=== PATIENT | male | born 1960 | race Caucasian/White ===

== ENCOUNTER 2022-08-26 19:47 | Emergency (ER) | payer OTHER ==
[~2022-08-26] VITALS: Ht 182.9 cm; Wt 95.0 kg
[2022-08-26 20:29] LABS: Basophils # (auto) 0 10 ^3/uL (0-0.2); Basophils % (auto) 0.2 % (0.0-2.0); Eosinophils # (auto) 0.1 10 ^3/uL (0-0.8); Eosinophils % (auto) 0.4 % (0.0-7.0); Hematocrit 36.3 % (41.0-53.0); Hemoglobin 12.3 g/dL (13.5-17.5); Lymphocytes # (auto) 0.8 10 ^3/uL (0.4-5.4); Lymphocytes % (auto) 6.3 % (10.0-50.0); Mean Corpuscular Hemoglobin 32.7 pg (28.0-32.0); Monocytes # (auto) 1.3 10 ^3/uL (0-1.3); Monocytes % (auto) 10.2 % (0.0-12.0); Neutrophils # (auto) 10.7 10 ^3/uL (1.6-8.6); Neutrophils % (auto) 82.9 % (37.0-80.0); Red Blood Cells 3.78 10^6/uL (4.5-5.90); Red Cell Distribution Width 12.4 % (11.8-14.3); White Blood Cell 12.9 10^3/uL (4.4-10.8)
[2022-08-26 20:44] LABS: Calcium 10.6 mg/dL (8.5-10.1); Potassium 3.8 mmol/L (3.5-5.1)
[2022-08-26 20:50] LABS: BUN/Creatinine Ratio 17.3 (10.0-20.0); Bilirubin, Total 0.8 mg/dL (0.2-1.0); Total Protein 7.3 g/dL (6.4-8.2)
[2022-08-27] MEDS ORDERED: MORPHINE SULFATE 4 MG/ML SYR/VIAL IM ONE (03:30)
[2022-08-27 04:49] VITALS: BP 128/60
== END 2022-08-27 07:48 | disposition left against medical advice (07) ==
LOC: ER 19:47 → EDBD 19:47 → ER 08-27 07:48
DX: R07.89 Other chest pain (principal); E83.52 Hypercalcemia; R73.9 Hyperglycemia, unspecified; F41.9 Anxiety disorder, unspecified
CPT/HCPCS: 36415; 80053; 83690; 84484; 85025; 93005; 96372; 99284; J2270

== ENCOUNTER 2024-06-28 10:05 | Inpatient (IN) | payer MEDICAID, OTHER ==
[~2024-06-28] VITALS: Ht 193 cm; Wt 72.1 kg
[2024-06-28 10:15] VITALS: PULSE 83; RESP 16; O2SAT 98
--- NOTE | 2024-06-28 10:20 | ED.PDOC ---
History of Present Illness(SKN HPI Comments HPI: 64 year old male DUSTIN presents to the ED with chief complaint of right lower extremity wound. Patient reports that he had been previously admitted to [facility] for his right lower leg wound for 4 days, being discharged yesterday with Clindamycin, however, he has not picked it up yet. Patient relays that he called EMS today for assistance as his leg wound has worsened and he did not want to go back to [facility]. Patient states his wounds have been present for over a week, but they got worse last night with redness, drainage, and pain. EMS notes patient's EKG showed some PVCs, but nothing else abnormal. Patient denies any numbness, weakness, fever, or chills. Initial Vital Signs: Temp : 97.9F BP: 172/72 HR: 101 RR: 16 SpO2: 97% Past Medical History: HTN Past Surgical History: Frontal lobe tumor surgery, ankle surgery Social History: Denies smoking or ETOH. Heroin use. Medications: No medications. Allergies: Augmentin HPI: Poor Historian. REVIEW OF SYSTEMS: CONSTITUTIONAL: Denies acute: fever, diaphoresis, chills, generalized weakness. HEAD: Denies acute: headache, photophobia Eyes: Denies acute: Double vision, vision loss, eye pain, eye discharge. EARS: Denies acute: tinnitus, hearing loss, ear discharge, ear pain, THROAT: Denies acute: sore throat, swelling, difficulty swallowing , pain with swallowing, change in voice. NECK: Denies acute: neck pain, neck swelling, stiff neck. HEART: Denies acute : chest pain, palpitations, LUNGS: Denies acute: SOB, wheezing, cough, hemoptysis ABDOMEN: Denies acute: abdominal pain, Nausea, Vomiting, diarrhea, melena , hematemesis, hematochezia SKIN: Denies acute: rash, itchiness. EXTREMITIES: Denies acute: calf pain, numbness, tingling, weakness, Denies acute: Low back pain. Neuro: Denies acute: focal neurological deficit, motor or sensory focal neurological deficit, tremors, seizure like activity, confusion, dizziness, change in mental status, loss of bowel or bladder function, cauda equina like symptoms. : Denies acute: dysuria, hematuria, flank pain, increase in urinary frequency. PSYCH: Denies acute: hallucination, suicidal ideation, homicidal ideation. PHYSICAL EXAM: General: no acute distress, awake and alert. Head: normocephalic, atraumatic. Neck: supple, trachea is midline, no swelling. Throat: Normal phonation. Eyes:, no erythema, no purulent discharge, no proptosis, no icterus. Heart: regular rate, regular rhythm, no significant murmur appreciated. Lungs: no apparent respiratory distress, Able to speak in full sentences. No wheezing, no rhonchi, no crackles. No stridors Clear to auscultation bilaterally. Abdomen: non tender to palpation, non distended, soft, no guarding, no rebound, + bowel sounds. Neuro: Awake, Alert, oriented to name, self, situation, follows commands GCS=15. Speech is normal. Skin: no petechia, no purpura, no cyanosis, non-pale, not jaundice. Lower extremities: --no - Pitting edema no deformity, no calf TTP. Evaluation of the area of complaint: Right lower extremity mid anterior soto region is noted to have localized erythema and swelling and tenderness to palpation with a central ulceration and granulation tissues. Patient is neurovascularly intact in the affected extremity. Pedal pulses palpable. Sensation and motor are present. Makes eye contact. moves all four extremities. Face: no apparent facial droop. ED COURSE: Chief Complaint: Wound Check Time Seen by MD: 10:15 History of Present Illness: Nurses Notes, Medications, Allergies Allergies: Coded Allergies: NO KNOWN ALLERGIES (Unverified , 08/26/22) Home Meds No Active Prescriptions or Reported Meds Information Source: Patient, Emergency Med Personnel Mode of Arrival: EMS Was a procedure done? Was a procedure done?: No Differential Diagnosis (INTG) Differential Diagnosis: Other (Ddx include but not limited to cellulitis, abscess, lymphadenitis, lymphangitis, trauma, DVT, venous insufficiency, trauma, r/o septic joint., r/o associated osteomylitis, deep tissue infection, neoplasm, necrotizing fascitits, hematoma, ) X-Ray, Labs, Meds, VS Vital Signs Date Time Temp Pulse Resp B/P (MAP) Pulse Ox O2 Delivery O2 Flow Rate FiO2 06/28/24 10:47 107 06/28/24 10:15 83 16 98 Room Air* 0 21 06/28/24 10:15 97.8 83 16 131/52 (78) 98 97.8 06/28/24 10:12 97.9 101 16 172/72 (105) 97 97.9 Lab Test 06/28/24 10:26 Range/Units White Blood Count 8.3 4.4-10.8 10^3/uL Red Blood Count 3.91 L 4.5-5.90 10^6/uL Hemoglobin 12.0 L 13.5-17.5 g/dL Hematocrit 36.4 L 41.0-53.0 % Mean Corpuscular Volume 92.9 80.0-100.0 fL Mean Corpuscular Hemoglobin 30.7 28.0-32.0 pg Mean Corpuscular Hemoglobin Concent 33.0 32.0-36.0 g/dL Red Cell Distribution Width 13.9 11.8-14.3 % Platelet Count 249 140-450 10^3/uL Mean Platelet Volume 7.4 6.9-10.8 fL Neutrophils (%) (Auto) 76.5 37.0-80.0 % Lymphocytes (%) (Auto) 13.5 10.0-50.0 % Monocytes (%) (Auto) 7.8 0.0-12.0 % Eosinophils (%) (Auto) 1.9 0.0-7.0 % Basophils (%) (Auto) 0.3 0.0-2.0 % Neutrophils # (Auto) 6.3 1.6-8.6 10 ^3/uL Lymphocytes # (Auto) 1.1 0.4-5.4 10 ^3/uL Monocytes # (Auto) 0.6 0-1.3 10 ^3/uL Eosinophils # (Auto) 0.2 0-0.8 10 ^3/uL Basophils # (Auto) 0 0-0.2 10 ^3/uL Nucleated Red Blood Cells 0.1 % Erythrocyte Sedimentation Rate 33 H 0-20 mm/hr Sodium Level 140 136-145 mmol/L Potassium Level 4.9 3.5-5.1 mmol/L Chloride Level 111 H 98-107 mmol/L Carbon Dioxide Level 22 20-31 mmol/L Anion Gap 7 5-15 Blood Urea Nitrogen 63 H 9-23 mg/dL Creatinine 2.34 H 0.700-1.30 mg/dL Glomerular Filtration Rate Calc 31 >90 mL/min BUN/Creatinine Ratio 26.9 H 10.0-20.0 Serum Glucose 117 H 74-106 mg/dL Lactic Acid Level 1.0 0.4-2.0 mmol/L Calcium Level 10.7 H 8.7-10.4 mg/dL Total Bilirubin 0.3 0.2-1.0 mg/dL Aspartate Amino Transferase (AST) 76 H 13-40 U/L Alanine Aminotransferase (ALT) 86 H 7-40 U/L Alkaline Phosphatase 101 46-116 U/L Troponin I High Sensitivity 10 </=54 ng/L C-Reactive Protein High Sensitivity 0.18 <1.0 mg/dL B-Type Natriuretic Peptide 18.47 0-100 pg/mL Total Protein 7.1 5.7-8.2 g/dL Albumin 3.8 3.2-4.8 g/dL [place] [address] Ph: [phone] DIAGNOSTIC IMAGING Diagnostic Imaging Report : [id number] Signed PATIENT: ABIOLA BAUTISTA ACCT: [id number] UNIT: [id number] : 1960 LOC: OVERFLOW ROOM / BED: [address] [place] [address] AGE / SEX: 64 / M ADM STATUS: ADM IN SERVICE 1148 ORDERING PHYSICIAN: TYSON JULIAN DO PROCEDURE(s): RTBCT - CT R TIB FIB WO CONTRAST REASON: LEG WOUND/ULCER ORDER NUMBER(s): [id number], ACCESSION NUMBER(s): [id number] EXAMINATION: CT CT R TIB FIB WO CONTRAST INDICATION: LEG WOUND/ULCER COMPARISON: None TECHNIQUE: CT of the right lower extremity was performed without contrast. Volume transverse images were obtained reconstructed in multiple planes using bone and soft tissue algorithms. Radiation Dose Information: CT Dose: CTDI volume is 25.17 mGy. Dose-length product is 1398.34 mGy*cm FINDINGS/IMPRESSION: No acute fracture or dislocation. Degenerative changes at the knee joint and ankle joint. Severe diffuse subcutaneous soft-tissue edema, skin thickening and swelling suspicious for cellulitis. There is a 1.7 x 0.6 cm skin defect in the mid anterolateral calf. No abscess or fluid collection at this time. No definite CT findings of osteomyelitis. ATED BY: JEAN JIM MD DICTATED DATE/TIME: 06/28/24 1308 SIGNED BY: JEAN JIM MD SIGNED DATE/TIME: 06/28/24 1308 CC: Time of 1ST Reevaluation: 11:15 Reevaluation 1ST: Unchanged Patient Education/Counseling: Diagnosis, Treatment Family Education/Counseling: No Family Present Comments Patient presented with the above HPI.---leg pain and swelling/cellulitis---workup was initiated. patient was found with the above mentioned diagnosis. the following medications were ordered: please refer to order lists of meds and tests obtained by myself Dr. Julian. Patient ED course and VS have been stabilized. Patient has been reassessed in the ED and remained in a stable condition. Pertinent incidental findings were discussed with the patient and/or family. Patient/family voices understanding and is agreeable with plan. Patient has been observed in the ED adequate length of time to insure improvement/stability. Escalation of care considered: Consideration of escalation to observation or admission Patient was ADMITTED to the medicine team for further evaluation and treatment of their presentation. All the reports of any imaging studies that were ordered by myself were reviewed by myself. Departure 1 Departure Time of Disposition: 11:10 Impression: Primary Impression: Cellulitis of leg, right Disposition: ADMITTED INPATIENT Admit to: Tele Condition: Guarded e-Prescriptions No Active Prescriptions or Reported Meds Discharged With: Self Critical Care Note Critical Care Time?: Yes (35 min-critical care time only) I personally scribed for TYSON JULIAN DO ([email or web address]) on 06/28/24 at 10:20. Electronically submitted by Justyn Boggs ([email or web address]). TYSON JULIAN DO Jun 28, 2024 10:20
[2024-06-28] MEDS: VANCOMYCIN PER PHARMACY 0 MG IV STA (10:21)
[2024-06-28 10:35] LABS: Basophils # (auto) 0 10 ^3/uL (0-0.2); Basophils % (auto) 0.3 % (0.0-2.0); Eosinophils # (auto) 0.2 10 ^3/uL (0-0.8); Eosinophils % (auto) 1.9 % (0.0-7.0); Hematocrit 36.4 % (41.0-53.0); Lymphocytes # (auto) 1.1 10 ^3/uL (0.4-5.4); Lymphocytes % (auto) 13.5 % (10.0-50.0); Mean Corpuscular Hemoglobin 30.7 pg (28.0-32.0); Mean Corpuscular Volume 92.9 fL (80.0-100.0); Monocytes # (auto) 0.6 10 ^3/uL (0-1.3); Monocytes % (auto) 7.8 % (0.0-12.0); Neutrophils # (auto) 6.3 10 ^3/uL (1.6-8.6); Neutrophils % (auto) 76.5 % (37.0-80.0); Nucleated Red Blood Cells % 0.1 %; Platelet Count (auto) 249 10^3/uL (140-450); Red Blood Cells 3.91 10^6/uL (4.5-5.90); Red Cell Distribution Width 13.9 % (11.8-14.3); White Blood Cell 8.3 10^3/uL (4.4-10.8)
[2024-06-28 10:54] LABS: Albumin 3.8 g/dL (3.2-4.8); Alkaline Phosphatase 101 U/L (46-116); Anion Gap 7 (5-15); BUN/Creatinine Ratio 26.9 (10.0-20.0); CRP High Sensitivity 0.18 mg/dL (<1.0); Carbon Dioxide 22 mmol/L (20-31); Potassium 4.9 mmol/L (3.5-5.1); Sodium 140 mmol/L (136-145); Total Protein 7.1 g/dL (5.7-8.2)
[2024-06-28 10:56] LABS: Alanine Aminotransferase 86 U/L (7-40); Aspartate Aminotransferase 76 U/L (13-40); Bilirubin, Total 0.3 mg/dL (0.2-1.0); Blood Urea Nitrogen 63 mg/dL (9-23); Calcium 10.7 mg/dL (8.7-10.4); Chloride 111 mmol/L (98-107); Glucose 117 mg/dL (74-106)
[2024-06-28 11:08] LABS: Erythrocyte Sedimentation Rate 33 mm/hr (0-20)
[2024-06-28] MEDS ORDERED: ACETAMINOPHEN 325 MG TAB PO PRN (11:30)
[2024-06-28] MEDS ORDERED: MORPHINE SULFATE INJ 2 MG/ml SYRG IV PRN (11:30)
[2024-06-28] MEDS ORDERED: VANCOMYCIN PER PHARMACY 0 MG IV SCH (11:30)
[2024-06-28] MEDS ORDERED: ONDANSETRON HCL 4 MG/2 ML VIAL IV PRN (11:30)
[2024-06-28] MEDS: VANCOMYCIN 1GM/250ML KIT 250 ML IV ONE (11:45)
--- NOTE | 2024-06-28 11:57 | DVHHP2 ---
History of Present Illness Reason for Visit: Right lower extremity wound History of Present Illness Rajesh To is a 64-year-old male with past medical history of frontal lobe tumor surgery, left ankle surgery, hypertension, and chronic renal disease not on dialysis who presents to the ED with right lower extremity pain. 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 Patient states that the wound was not open like that when he was discharged. Upon examination noted to have pus draining foul-smelling odor. Right leg also erythematous. Patient states that he is homeless and he is living on the streets. He reports the right lower extremity pain 10/10 aching and burning constantly. Patient currently denies chest pain, shortness of breath, fever, chills, redness, weakness, dizziness, abdominal pain, nausea, vomiting, and diarrhea. Cardiovascular: HTN Renal/: Chronic renal insuff Past Surgical History: Other (Frontal lobe tumor surgery and left ankle surgery) Family History: None Smoke: <1 pack per day ALCOHOL: none Drugs: Heroin, Other (Fentanyl) Lives: Homeless Domestic Violence: Neg Review of Systems Musculoskeletal: leg pain Skin: Other (Erythematous open wound with pus draining and foul-smelling odor) Allergies: Coded Allergies: NO KNOWN ALLERGIES (Unverified , 08/26/22) Medications Current Medications Medications Dose Ordered Sig/Nisa Route Start Time Stop Time Status Last Admin Dose Admin Acetaminophen/ Hydrocodone Bitart 1 tab Q4HP PRN PO 06/28/24 11:30 UNV Ondansetron HCl 4 mg Q4HP PRN IV 06/28/24 11:30 UNV Enoxaparin Sodium 30 mg DAILY SC 06/29/24 10:00 UNV Acetaminophen 650 mg Q6HP PRN PO 06/28/24 11:30 UNV Morphine Sulfate 2 mg Q4HPRN PRN IV 06/28/24 11:30 UNV Vancomycin HCl 0 ml @ 0 mls/hr UD IV 06/28/24 11:30 UNV Exam Vital Signs Vital Signs Date Time Temp Pulse Resp B/P (MAP) Pulse Ox O2 Delivery O2 Flow Rate FiO2 06/28/24 10:47 107 06/28/24 10:15 16 98 Room Air* 0 21 06/28/24 10:15 97.8 131/52 (78) 97.8 General Appearance: Alert, Oriented X3, Cooperative, mild distress HEENT: Atraumatic, PERRLA, EOMI, Mucous membr. moist/pink Respiratory: Normal air movement Cardiovascular: Normal S1, Normal S2, No murmurs Abdominal: Soft Neuro: Normal speech Labs/Xrays Labs Test 06/28/24 10:26 Range/Units White Blood Count 8.3 4.4-10.8 10^3/uL Red Blood Count 3.91 L 4.5-5.90 10^6/uL Hemoglobin 12.0 L 13.5-17.5 g/dL Hematocrit 36.4 L 41.0-53.0 % Mean Corpuscular Volume 92.9 80.0-100.0 fL Mean Corpuscular Hemoglobin 30.7 28.0-32.0 pg Mean Corpuscular Hemoglobin Concent 33.0 32.0-36.0 g/dL Red Cell Distribution Width 13.9 11.8-14.3 % Platelet Count 249 140-450 10^3/uL Mean Platelet Volume 7.4 6.9-10.8 fL Neutrophils (%) (Auto) 76.5 37.0-80.0 % Lymphocytes (%) (Auto) 13.5 10.0-50.0 % Monocytes (%) (Auto) 7.8 0.0-12.0 % Eosinophils (%) (Auto) 1.9 0.0-7.0 % Basophils (%) (Auto) 0.3 0.0-2.0 % Neutrophils # (Auto) 6.3 1.6-8.6 10 ^3/uL Lymphocytes # (Auto) 1.1 0.4-5.4 10 ^3/uL Monocytes # (Auto) 0.6 0-1.3 10 ^3/uL Eosinophils # (Auto) 0.2 0-0.8 10 ^3/uL Basophils # (Auto) 0 0-0.2 10 ^3/uL Nucleated Red Blood Cells 0.1 % Erythrocyte Sedimentation Rate 33 H 0-20 mm/hr Sodium Level 140 136-145 mmol/L Potassium Level 4.9 3.5-5.1 mmol/L Chloride Level 111 H 98-107 mmol/L Carbon Dioxide Level 22 20-31 mmol/L Anion Gap 7 5-15 Blood Urea Nitrogen 63 H 9-23 mg/dL Creatinine 2.34 H 0.700-1.30 mg/dL Glomerular Filtration Rate Calc 31 >90 mL/min BUN/Creatinine Ratio 26.9 H 10.0-20.0 Serum Glucose 117 H 74-106 mg/dL Lactic Acid Level 1.0 0.4-2.0 mmol/L Calcium Level 10.7 H 8.7-10.4 mg/dL Total Bilirubin 0.3 0.2-1.0 mg/dL Aspartate Amino Transferase (AST) 76 H 13-40 U/L Alanine Aminotransferase (ALT) 86 H 7-40 U/L Alkaline Phosphatase 101 46-116 U/L Troponin I High Sensitivity 10 </=54 ng/L C-Reactive Protein High Sensitivity 0.18 <1.0 mg/dL B-Type Natriuretic Peptide 18.47 0-100 pg/mL Total Protein 7.1 5.7-8.2 g/dL Albumin 3.8 3.2-4.8 g/dL Assessment/Plan Assessment/Plan Assessment Right lower extremity wound possible cellulitis SANDY Tobacco use Fentanyl use Heroin use Transaminitis History of hypertension History of CKD not on dialysis History of frontal lobe surgery History of left ankle surgery Plan Admit to [facility] CT right tib-fib X-ray right tib-fib IV antibiotics-vancomycin Troponin negative EKG UA ESR noted Lactic CRP BNP IV fluids Antiemetics Pain management Wound culture Wound consult Lovenox Counseled patient on cessation of tobacco use Counseled patient on heroin and fentanyl use Discussed plan of care with patient No home medications to reconcile Rounding team to consider GI consult if no improvement in LFTs Social work for homelessness Plan discussed with: Patient My Orders Orders - MARY PULLIAM INDIVIDUAL PENSION CONSULTANT Procedure Category Date Status Time * Wound Consult CONS 06/28/24 Transmitted Wound Culture W/ Gs AISHA 06/28/24 Transmitted 11:25 Admit ADMIT 06/28/24 Transmitted 11:25 Allergies ACE 06/28/24 Transmitted 11:25 Code Status CODE 06/28/24 Transmitted 11:25 Renal DIET 06/28/24 Transmitted Standard(2gna,3gk,Lopho) Lunch Hydrocodone-Acet PHA 06/28/24 Transmitted 5/325mg Tab ([place] 11:30 Ondansetron Hcl PHA 06/28/24 Transmitted (Zofran) 11:30 Complete Blood Count LAB 06/29/24 Verified 04:00 Comprehensive LAB 06/29/24 Verified Metabolic Panel 04:00 Enoxaparin Sodium PHA 06/29/24 Transmitted (Lovenox) 10:00 Acetaminophen Tablet PHA 06/28/24 Transmitted (Tylenol Tablet) 11:30 Morphine Sulfate PHA 06/28/24 Transmitted Injection 11:30 Vancomycin Per PHA 06/28/24 Transmitted Pharmacy 11:30 NS PHA 06/28/24 Transmitted 12:00 Date of Service: Jun 28, 2024 Billing Provider: MARY PULLIAM Common Visit Codes: [id number] INP/OBS CARE (HIGH) MARY PULLIAM Jun 28, 2024 11:57
[2024-06-28] MEDS: SODIUM CHLORIDE 0.9% 1,000 ML IV SCH (12:00)
--- NOTE | 2024-06-28 13:10 | DVH ---
EXAMINATION: CT CT R TIB FIB WO CONTRAST INDICATION: LEG WOUND/ULCER COMPARISON: None TECHNIQUE: CT of the right lower extremity was performed without contrast. Volume transverse images w ere obtained reconstructed in multiple planes using bone and soft tissue algorithms. Radiation Dose Information: CT Dose: CTDI volume is 25.17 mGy. Dose-length product is 1398.34 mGy*cm FINDINGS/IMPRESSION: No acute fracture or dislocation. Degenerative changes at the knee joint and ankle joint. Severe diffuse subcutaneous soft-tissue edema, skin thickening and swelling suspicious for cellulitis . There is a 1.7 x 0.6 cm skin defect in the mid anterolateral calf. No abscess or fluid collection at this time. No definite CT findings of osteomyelitis.
[2024-06-28 14:44] LABS: Urine Bacteria None Seen /hpf (None Seen)
[2024-06-28 15:01] LABS: Urine Blood Negative /uL (Negative); Urine Clarity Clear (Clear); Urine Color Light-Yellow (Yellow); Urine Protein, UAD TRACE (Negative); Urine Specific Gravity 1.016 (1.001-1.035); Urine Squamous Epithelial Cell None Seen /hpf (<5); Urine Urobilinogen Normal (Negative); Urine WBC 73 /HPF (0-3)
--- NOTE | 2024-06-28 16:08 | ECG ---
[facility] Test Date: 2024-06-28 Test Time: 10:47:55 Pat Name: ABIOLA BAUTISTA Department: ED Room: 0285T Gender: M Mandarin Tutor: malena : 1960 Requested By: TYSON JULIAN Order Number: [id number] Reading MD: Suhail Prado Measurements Intervals [place] Rate: 107 P: 82 VA: 155 QRS: 27 QRSD: 106 T: 82 QT: 363 QTc: 485 Interpretive Statements Sinus tachycardia Ventricular bigeminy Probable left atrial enlargement Electronically Signed On 06-29-2024 17:45:17 PDT by Suhail Prado Please click the below link to view image of tracing.
[2024-06-28 18:09] VITALS: PULSE 43; RESP 18; O2SAT 99
[2024-06-28 18:10] VITALS: BP 152/79; PULSE 79; RESP 18; TEMP 99.7; O2SAT 98
[2024-06-28] MEDS: HYDROcodone-ACET 5/325MG TAB PO PRN (18:14)
[2024-06-28 20:00] VITALS: PULSE 61; RESP 16; O2SAT 97
[2024-06-28 21:00] VITALS: BP 137/55; PULSE 61; RESP 18; TEMP 98.4; O2SAT 97
[2024-06-28] MEDS: chlordiazePOXIDE HCL 25 MG CAP PO SCH (21:11)
[2024-06-29] VITALS (7 sets, daily range): BP systolic 110–177; BP diastolic 56–82; PULSE 49–103; RESP 18–20; TEMP 97.9–98.4; O2SAT 97–99
[2024-06-29] MEDS: ENOXAPARIN SOD 30 MG/0.3 ML SYRINGE SC SCH (09:57)
[2024-06-29 11:33] LABS: Basophils # (auto) 0 10 ^3/uL (0-0.2); Basophils % (auto) 0.3 % (0.0-2.0); Eosinophils # (auto) 0.1 10 ^3/uL (0-0.8); Eosinophils % (auto) 1.6 % (0.0-7.0); Hematocrit 36.2 % (41.0-53.0); Hemoglobin 11.9 g/dL (13.5-17.5); Lymphocytes # (auto) 0.7 10 ^3/uL (0.4-5.4); Lymphocytes % (auto) 11.1 % (10.0-50.0); Mean Corpuscular Hemoglobin 30.5 pg (28.0-32.0); Mean Corpuscular Hgb Conc. 32.8 g/dL (32.0-36.0); Mean Corpuscular Volume 92.9 fL (80.0-100.0); Monocytes # (auto) 0.5 10 ^3/uL (0-1.3); Monocytes % (auto) 6.9 % (0.0-12.0); Neutrophils # (auto) 5.3 10 ^3/uL (1.6-8.6); Neutrophils % (auto) 80.1 % (37.0-80.0); Nucleated Red Blood Cells % 0.1 %; Platelet Count (auto) 191 10^3/uL (140-450); Red Blood Cells 3.89 10^6/uL (4.5-5.90); Red Cell Distribution Width 13.8 % (11.8-14.3); White Blood Cell 6.6 10^3/uL (4.4-10.8)
[2024-06-29 11:52] LABS: Albumin 3.3 g/dL (3.2-4.8); Alkaline Phosphatase 89 U/L (46-116); Anion Gap 6 (5-15); BUN/Creatinine Ratio 29.4 (10.0-20.0); Calcium 10.1 mg/dL (8.7-10.4); Glucose 93 mg/dL (74-106); Sodium 139 mmol/L (136-145); Total Protein 6.4 g/dL (5.7-8.2)
[2024-06-29 11:53] LABS: Alanine Aminotransferase 74 U/L (7-40); Aspartate Aminotransferase 69 U/L (13-40); Bilirubin, Total 0.4 mg/dL (0.2-1.0); Blood Urea Nitrogen 42 mg/dL (9-23); Carbon Dioxide 19 mmol/L (20-31); Chloride 114 mmol/L (98-107); Potassium 5.1 mmol/L (3.5-5.1)
--- NOTE | 2024-06-29 14:05 | DVHPN2 ---
Subjective The patient is seen and examined at bedside. The patient is complain pain in his leg. Reviewed: Care Plan, H&P, Labs, Medications, Previous Orders, Radiology Changes from previous H/P or p: No Changes Musculoskeletal: leg pain Skin: Other (Erythematous open wound with pus draining and foul-smelling odor) Objective Vitals Vital Signs Date Time Temp Pulse Resp B/P (MAP) Pulse Ox O2 Delivery O2 Flow Rate FiO2 06/29/24 13:00 98.0 49 20 177/73 (107) 99 98.0 06/29/24 08:00 Room Air* 0 21 Intake/Output Intake and Output 06/29/24 07:00 Intake Total 1350 ml Output Total 500 ml Balance 850 ml Intake Oral 1150 ml IV Total 200 ml Output Urine Total 500 ml # Bowel Movements 1 General Appearance: Alert, Oriented X3, Cooperative, No acute distress HEENT: Atraumatic, PERRLA, EOMI, Mucous membr. moist/pink Neck: Supple Lungs: Clear to auscultation, Normal air movement Cardiovascular: Regular rate, Normal S1, Normal S2, No murmurs, Gallops, Rubs Abdomen: Normal bowel sounds, Soft, No tenderness Neuro: Cranial nerves 3-12 NL Psych/Mental Status: Mental status NL Medications Current Medications Medications Dose Ordered Sig/Nisa Route Start Time Stop Time Status Last Admin Dose Admin Acetaminophen/ Hydrocodone Bitart 1 tab Q4HP PRN PO 06/28/24 11:30 06/28/24 18:14 1 TAB Ondansetron HCl 4 mg Q4HP PRN IV 06/28/24 11:30 Enoxaparin Sodium 30 mg DAILY SC 06/29/24 10:00 06/29/24 09:57 30 MG Acetaminophen 650 mg Q6HP PRN PO 06/28/24 11:30 Morphine Sulfate 2 mg Q4HPRN PRN IV 06/28/24 11:30 Vancomycin HCl 0 ml @ 0 mls/hr UD IV 06/28/24 11:30 Sodium Chloride 1,000 ml @ 100 mls/hr Q10H IV 06/28/24 12:00 06/28/24 21:11 100 MLS/HR Chlordiazepoxide HCl 50 mg Q12HR PO 06/29/24 22:00 06/30/24 10:01 Chlordiazepoxide HCl 25 mg Q12HR PO 06/30/24 22:00 07/01/24 10:01 Chlordiazepoxide HCl 25 mg QAM PO 07/01/24 22:00 07/01/24 22:01 Vancomycin HCl 250 ml @ 200 mls/hr Q24H IV 06/29/24 20:00 Laboratory Results Laboratory Tests 06/29/24 11:15 Chemistry Test 06/29/24 11:15 Albumin 3.3 g/dL (3.2-4.8) Calcium Level 10.1 mg/dL (8.7-10.4) Total Protein 6.4 g/dL (5.7-8.2) LFT Test 06/29/24 11:15 Alanine Aminotransferase (ALT) 74 U/L (7-40) H Alkaline Phosphatase 89 U/L (46-116) Aspartate Amino Transferase (AST) 69 U/L (13-40) H Total Bilirubin 0.4 mg/dL (0.2-1.0) Urinalysis Test 06/28/24 14:30 Urine Color Light-yellow (Yellow) Urine Clarity Clear (Clear) Urine pH 5.0 (5.0-9.0) Urine Specific [place] 1.016 (1.001-1.035) Urine Protein Trace (Negative) H Urine Ketones Negative (Negative) Urine Blood Negative /uL (Negative) Urine Nitrite Negative (Negative) Urine Bilirubin Negative (Negative) Urine Urobilinogen Normal mg/dL (Negative) Urine Leukocyte Esterase 2+ /uL (Negative) Urine RBC 6 /hpf (0 - 3) Urine Microscopic WBC 73 /HPF (0-3) H Urine Squamous Epithelial Cells None seen /hpf (<5) Urine Bacteria None seen /hpf (None Seen) Urine Glucose Normal mg/dL (Normal) Microbiology Microbiology Date/Time Source Procedure Growth Status 06/28/24 11:25 Leg Gram Stain Pending Resulted 06/28/24 11:25 Leg Wound Culture - Preliminary Resulted Labs and/or images reviewed: Labs reviewed by me Assessment/Plan Assessment/Plan -MRSA/cellulitis to lower extremity -history of polysubstance abuse including heroin, alcohol, tobacco -cachexia -acute kidney injury, vasomotor nephropathy -hyperkalemia -homelessness -failure of oral antibiotic therapy Plan: Continuing current management. Continuing with IV antibiotic vancomycin. Continuing with Librium as needed for detox. Continuing to monitor hyperkalemia. Continuing with pain med This medical document was created using an electronic medical record system with [employer] direct computerized dictation system. Although this document has been carefully reviewed, there may still be some phonetic and typographical errors. These areas are purely typographical due to imperfections of the software programs, and do not reflect any compromise in the patient's medical care. Plan discussed with: Patient Date of Service: Jun 29, 2024 Billing Provider: LETTY ATWOOD MD Common Visit Codes: [id number] INP/OBS CARE(HIGH) LETTY ATWOOD MD Jun 29, 2024 14:05
[2024-06-29] MEDS: LOPERAMIDE HCL 2 MG CAP/TAB PO PRN (17:57)
[2024-06-29] MEDS: VANCOMYCIN 1GM/250ML KIT 250 ML IV SCH (20:10)
[2024-06-29] MEDS: chlordiazePOXIDE HCL 25 MG CAP PO SCH (21:12)
[2024-06-30] VITALS (7 sets, daily range): BP systolic 102–169; BP diastolic 65–77; PULSE 50–87; RESP 16–22; TEMP 97.8–98.3; O2SAT 96–99
[2024-06-30] MEDS: hydrALAZINE HCL 20 MG/ML VL IV PRN (06:45)
[2024-06-30 07:55] LABS: Basophils # (auto) 0 10 ^3/uL (0-0.2); Basophils % (auto) 0.4 % (0.0-2.0); Eosinophils # (auto) 0.1 10 ^3/uL (0-0.8); Eosinophils % (auto) 1.4 % (0.0-7.0); Hematocrit 36.2 % (41.0-53.0); Hemoglobin 12.4 g/dL (13.5-17.5); Lymphocytes # (auto) 0.8 10 ^3/uL (0.4-5.4); Lymphocytes % (auto) 11.7 % (10.0-50.0); Mean Corpuscular Hemoglobin 30.9 pg (28.0-32.0); Mean Corpuscular Hgb Conc. 34.2 g/dL (32.0-36.0); Mean Corpuscular Volume 90.3 fL (80.0-100.0); Monocytes # (auto) 0.4 10 ^3/uL (0-1.3); Monocytes % (auto) 6.2 % (0.0-12.0); Neutrophils # (auto) 5.5 10 ^3/uL (1.6-8.6); Neutrophils % (auto) 80.3 % (37.0-80.0); Nucleated Red Blood Cells % 0.1 %; Platelet Count (auto) 184 10^3/uL (140-450); Red Blood Cells 4.01 10^6/uL (4.5-5.90); Red Cell Distribution Width 13.5 % (11.8-14.3); White Blood Cell 6.8 10^3/uL (4.4-10.8)
[2024-06-30] MEDS: chlordiazePOXIDE HCL 25 MG CAP PO SCH (22:20)
--- NOTE | 2024-06-30 23:10 | DVHPN2 ---
Subjective The patient is seen and examined at bedside. Complain of leg pain. Reviewed: Care Plan, H&P, Labs, Medications, Previous Orders, Radiology Changes from previous H/P or p: No Changes Musculoskeletal: leg pain Skin: Other (Erythematous open wound with pus draining and foul-smelling odor) Objective Vitals Vital Signs Date Time Temp Pulse Resp B/P (MAP) Pulse Ox O2 Delivery O2 Flow Rate FiO2 06/30/24 21:00 97.8 75 22 128/77 (94) 99 97.8 06/30/24 20:00 Room Air* 0 21 Intake/Output Intake and Output 06/30/24 07:00 Intake Total 3466 ml Output Total 3175 ml Balance 291 ml Intake Oral 2216 ml IV Total 1250 ml Output Urine Total 3175 ml # Voids 1 General Appearance: Alert, Oriented X3, Cooperative, No acute distress HEENT: Atraumatic, PERRLA, EOMI, Mucous membr. moist/pink Neck: Supple Lungs: Clear to auscultation, Normal air movement Cardiovascular: Regular rate, Normal S1, Normal S2, No murmurs, Gallops, Rubs Abdomen: Normal bowel sounds, Soft, No tenderness, No hepatospenomegaly Neuro: Cranial nerves 3-12 NL Psych/Mental Status: Mental status NL Medications Current Medications Medications Dose Ordered Sig/Nisa Route Start Time Stop Time Status Last Admin Dose Admin Acetaminophen/ Hydrocodone Bitart 1 tab Q4HP PRN PO 06/28/24 11:30 06/29/24 18:02 1 TAB Ondansetron HCl 4 mg Q4HP PRN IV 06/28/24 11:30 Enoxaparin Sodium 30 mg DAILY SC 06/29/24 10:00 06/30/24 10:13 30 MG Acetaminophen 650 mg Q6HP PRN PO 06/28/24 11:30 Morphine Sulfate 2 mg Q4HPRN PRN IV 06/28/24 11:30 Vancomycin HCl 0 ml @ 0 mls/hr UD IV 06/28/24 11:30 Sodium Chloride 1,000 ml @ 100 mls/hr Q10H IV 06/28/24 12:00 06/30/24 13:55 100 MLS/HR Chlordiazepoxide HCl 25 mg Q12HR PO 06/30/24 22:00 07/01/24 10:01 06/30/24 22:20 25 MG Chlordiazepoxide HCl 25 mg QAM PO 07/01/24 22:00 07/01/24 22:01 Vancomycin HCl 250 ml @ 200 mls/hr Q24H IV 06/29/24 20:00 06/30/24 20:24 200 MLS/HR Loperamide HCl 2 mg Q6HPRN PRN PO 06/29/24 16:00 06/29/24 17:57 2 MG Hydralazine HCl 10 mg Q6HP PRN IV 06/30/24 06:45 06/30/24 06:45 10 MG Laboratory Results Laboratory Tests 06/29/24 11:15 06/30/24 07:14 Urinalysis Test 06/28/24 14:30 Urine Color Light-yellow (Yellow) Urine Clarity Clear (Clear) Urine pH 5.0 (5.0-9.0) Urine Specific [place] 1.016 (1.001-1.035) Urine Protein Trace (Negative) H Urine Ketones Negative (Negative) Urine Blood Negative /uL (Negative) Urine Nitrite Negative (Negative) Urine Bilirubin Negative (Negative) Urine Urobilinogen Normal mg/dL (Negative) Urine Leukocyte Esterase 2+ /uL (Negative) Urine RBC 6 /hpf (0 - 3) Urine Microscopic WBC 73 /HPF (0-3) H Urine Squamous Epithelial Cells None seen /hpf (<5) Urine Bacteria None seen /hpf (None Seen) Urine Glucose Normal mg/dL (Normal) Microbiology Microbiology Date/Time Source Procedure Growth Status 06/28/24 11:25 Leg Gram Stain - Final Resulted 06/28/24 11:25 Leg Wound Culture - Preliminary Resulted Labs and/or images reviewed: Labs reviewed by me Assessment/Plan Assessment/Plan -MRSA/cellulitis to lower extremity -history of polysubstance abuse including heroin, alcohol, tobacco -cachexia -acute kidney injury, vasomotor nephropathy -hyperkalemia -homelessness -failure of oral antibiotic therapy Plan: Continuing current management. Continuing with IV antibiotic vancomycin. Continuing with Librium as needed for detox. Continuing to monitor hyperkalemia. Continuing with pain med This medical document was created using an electronic medical record system with [employer] computerized dictation system. Although this document has been carefully reviewed, there may still be some phonetic and typographical errors. These areas are purely typographical due to imperfections of the software programs, and do not reflect any compromise in the patient's medical care. Plan discussed with: Patient Date of Service: Jun 30, 2024 Billing Provider: LETTY ATWOOD MD Common Visit Codes: [id number] INP/OBS CARE(HIGH) LETTY ATWOOD MD Jun 30, 2024 23:10
[2024-07-01 05:00] VITALS: BP 152/75; PULSE 72; RESP 17; TEMP 98.2; O2SAT 99
[2024-07-01 08:00] VITALS: PULSE 73; PULSE 74; RESP 18; O2SAT 97
[2024-07-01 09:25] VITALS: BP 154/90; PULSE 74; RESP 18; TEMP 98.4; O2SAT 97
[2024-07-01 10:11] LABS: Anion Gap 10 (5-15); Basophils # (auto) 0 10 ^3/uL (0-0.2); Basophils % (auto) 0.7 % (0.0-2.0); Eosinophils # (auto) 0.1 10 ^3/uL (0-0.8); Eosinophils % (auto) 1.1 % (0.0-7.0); Hematocrit 35.4 % (41.0-53.0); Lymphocytes # (auto) 0.8 10 ^3/uL (0.4-5.4); Lymphocytes % (auto) 12.5 % (10.0-50.0); Mean Corpuscular Hemoglobin 31.1 pg (28.0-32.0); Mean Corpuscular Volume 91.7 fL (80.0-100.0); Monocytes # (auto) 0.5 10 ^3/uL (0-1.3); Monocytes % (auto) 7.2 % (0.0-12.0); Neutrophils # (auto) 5.3 10 ^3/uL (1.6-8.6); Neutrophils % (auto) 78.5 % (37.0-80.0); Nucleated Red Blood Cells % 0.1 %; Platelet Count (auto) 213 10^3/uL (140-450); Red Blood Cells 3.87 10^6/uL (4.5-5.90); Red Cell Distribution Width 13.3 % (11.8-14.3); Sodium 141 mmol/L (136-145); White Blood Cell 6.8 10^3/uL (4.4-10.8)
[2024-07-01 10:17] LABS: Glucose 93 mg/dL (74-106)
[2024-07-01 10:26] LABS: Blood Urea Nitrogen 31 mg/dL (9-23); Calcium 10.9 mg/dL (8.7-10.4); Carbon Dioxide 19 mmol/L (20-31); Chloride 112 mmol/L (98-107); Potassium 5.2 mmol/L (3.5-5.1)
--- NOTE | 2024-07-01 15:36 | DVHPN2 ---
Subjective Denies any symptoms Reviewed: Care Plan, H&P, Medications, Previous Orders Changes from previous H/P or p: No Changes General: Per HPI Musculoskeletal: leg pain Skin: Other (Erythematous open wound with pus draining and foul-smelling odor) Objective Vitals Vital Signs Date Time Temp Pulse Resp B/P (MAP) Pulse Ox O2 Delivery O2 Flow Rate FiO2 07/01/24 09:25 98.4 74 18 154/90 (111) 97 98.4 07/01/24 08:00 Room Air* 0 21 Intake/Output Intake and Output 07/01/24 07:00 Intake Total 3000 ml Output Total 3450 ml Balance -450 ml Intake Oral 2600 ml IV Total 400 ml Output Urine Total 3450 ml General Appearance: Alert, Oriented X3, Cooperative, mild distress HEENT: Atraumatic, PERRLA Lungs: Clear to auscultation, Normal air movement Cardiovascular: Normal S1, Normal S2 Genitourinary: No Apparent Abnormalities Back: Flank Tenderness, Midline Tenderness Skin: Wounds (See nurse notes and pictures) Psych/Mental Status: Mental status NL, Mood NL Medications Current Medications Medications Dose Ordered Sig/Nisa Route Start Time Stop Time Status Last Admin Dose Admin Acetaminophen/ Hydrocodone Bitart 1 tab Q4HP PRN PO 06/28/24 11:30 06/29/24 18:02 1 TAB Ondansetron HCl 4 mg Q4HP PRN IV 06/28/24 11:30 Enoxaparin Sodium 30 mg DAILY SC 06/29/24 10:00 06/30/24 10:13 30 MG Acetaminophen 650 mg Q6HP PRN PO 06/28/24 11:30 Morphine Sulfate 2 mg Q4HPRN PRN IV 06/28/24 11:30 Vancomycin HCl 0 ml @ 0 mls/hr UD IV 06/28/24 11:30 Sodium Chloride 1,000 ml @ 100 mls/hr Q10H IV 06/28/24 12:00 07/01/24 05:00 100 MLS/HR Chlordiazepoxide HCl 25 mg QAM PO 07/01/24 22:00 07/01/24 22:01 Vancomycin HCl 250 ml @ 200 mls/hr Q24H IV 06/29/24 20:00 06/30/24 20:24 200 MLS/HR Loperamide HCl 2 mg Q6HPRN PRN PO 06/29/24 16:00 06/29/24 17:57 2 MG Hydralazine HCl 10 mg Q6HP PRN IV 06/30/24 06:45 06/30/24 06:45 10 MG Laboratory Results Laboratory Tests 07/01/24 05:12 Chemistry Test 07/01/24 05:12 Calcium Level 10.9 mg/dL (8.7-10.4) H Urinalysis Test 06/28/24 14:30 Urine Color Light-yellow (Yellow) Urine Clarity Clear (Clear) Urine pH 5.0 (5.0-9.0) Urine Specific [place] 1.016 (1.001-1.035) Urine Protein Trace (Negative) H Urine Ketones Negative (Negative) Urine Blood Negative /uL (Negative) Urine Nitrite Negative (Negative) Urine Bilirubin Negative (Negative) Urine Urobilinogen Normal mg/dL (Negative) Urine Leukocyte Esterase 2+ /uL (Negative) Urine RBC 6 /hpf (0 - 3) Urine Microscopic WBC 73 /HPF (0-3) H Urine Squamous Epithelial Cells None seen /hpf (<5) Urine Bacteria None seen /hpf (None Seen) Urine Glucose Normal mg/dL (Normal) Microbiology Microbiology Date/Time Source Procedure Growth Status 06/28/24 11:25 Leg Gram Stain - Final Complete 06/28/24 11:25 Wound Culture - Final Methicillin Resistant S.aureus Streptococcus Group A Complete Labs and/or images reviewed: Labs reviewed by me, Image(s) reviewed by me Assessment/Plan Assessment/Plan Impression: -MRSA/cellulitis to lower extremity -history of polysubstance abuse including heroin, alcohol, tobacco -cachexia -acute kidney injury, vasomotor nephropathy -hyperkalemia -homelessness -failure of oral antibiotic therapy Plan: -patient with growth MRSA. Change IV antibiotic therapy to IV clindamycin to assess tolerance. -patient extremely somnolent, stop Librium -potassium 5.2. One dose of Lokelma -social service consultation for discharge planning, with plans for DC tomorrow -repeat labs in a.m. -Lifestyle modification education: 10 minutes spent discussing with the patient to abstain from illicit drug use. Total time spent with patient discussing and formulating plan of care: 35 minutes. This medical document was created using an electronic medical record system with [employer] dictation system. Although this document has been carefully reviewed, there may still be some phonetic and typographical errors. These areas are purely typographical due to imperfections of the software programs, and do not reflect any compromise in the patient's medical care. Plan discussed with: Patient, Other (RN) Date of Service: Jul 01, 2024 Billing Provider: POORNIMA WOODS NP Common Visit Codes: [id number] INP/OBS CARE(HIGH) Secondary Visit Codes: [id number] CHNG SMOKING >10MIN POORNIMA WOODS NP Jul 01, 2024 15:36
[2024-07-01] MEDS: SODIUM ZIRCONIUM CYCL 10 GM PAK PO ONE (18:21)
[2024-07-01 20:00] VITALS: PULSE 100; PULSE 44; RESP 18; O2SAT 98
[2024-07-01 21:00] VITALS: BP 114/53; PULSE 45; RESP 18; TEMP 97.3; O2SAT 97
[2024-07-01] MEDS: CLINDAMYCIN 600MG IV 50 ML IV SCH (21:38)
[2024-07-01] MEDS ORDERED: chlordiazePOXIDE HCL 25 MG CAP PO SCH (22:00)
[2024-07-02 01:00] VITALS: BP 126/66; PULSE 75; RESP 18; TEMP 98.5; O2SAT 98
[2024-07-02 05:00] VITALS: BP 148/77; PULSE 73; RESP 19; TEMP 97.1; O2SAT 99
[2024-07-02 08:00] VITALS: PULSE 80
[2024-07-02 09:00] VITALS: BP 94/64; PULSE 44; RESP 19; TEMP 97.8; O2SAT 96
[2024-07-02] MEDS: FLORASTOR (S. BOULARDII) 250 MG CAP PO SCH (09:27)
[2024-07-02 10:47] LABS: Potassium 4.2 mmol/L (3.5-5.1); Sodium 143 mmol/L (136-145)
[2024-07-02 10:48] LABS: Anion Gap 10 (5-15); Carbon Dioxide 24 mmol/L (20-31)
[2024-07-02 10:53] LABS: BUN/Creatinine Ratio 22.7 (10.0-20.0); Glucose 78 mg/dL (74-106)
[2024-07-02 10:55] LABS: Blood Urea Nitrogen 32 mg/dL (9-23); Calcium 11.6 mg/dL (8.7-10.4); Chloride 109 mmol/L (98-107)
[2024-07-02] MEDS ORDERED: CLIN1CAP70 PO (11:16)
[2024-07-02] MEDS ORDERED: SACC250C PO (11:16)
--- NOTE | 2024-07-02 11:21 | DVHDS2 ---
Discharge Summary Date of Admission Jun 28, 2024 at 11:25 Date of Discharge: Jul 02, 2024 Admitting Diagnosis Right lower extremity cellulitis Labs/Diagnostic Data: Laboratory Results Test 07/02/24 10:21 07/01/24 05:12 06/29/24 11:15 06/28/24 14:30 Sodium Level 143 mmol/L (136-145) Potassium Level 4.2 mmol/L (3.5-5.1) Chloride Level 109 mmol/L (98-107) Carbon Dioxide Level 24 mmol/L (20-31) Anion Gap 10 (5-15) Blood Urea Nitrogen 32 mg/dL (9-23) Creatinine 1.41 mg/dL (0.700-1.30) Glomerular Filtration Rate Calc 56 mL/min (>90) BUN/Creatinine Ratio 22.7 (10.0-20.0) Serum Glucose 78 mg/dL (74-106) Calcium Level 11.6 mg/dL (8.7-10.4) White Blood Count 6.8 10^3/uL (4.4-10.8) Red Blood Count 3.87 10^6/uL (4.5-5.90) Hemoglobin 12.0 g/dL (13.5-17.5) Hematocrit 35.4 % (41.0-53.0) Mean Corpuscular Volume 91.7 fL (80.0-100.0) Mean Corpuscular Hemoglobin 31.1 pg (28.0-32.0) Mean Corpuscular Hemoglobin Concent 34.0 g/dL (32.0-36.0) Red Cell Distribution Width 13.3 % (11.8-14.3) Platelet Count 213 10^3/uL (140-450) Mean Platelet Volume 8.3 fL (6.9-10.8) Neutrophils (%) (Auto) 78.5 % (37.0-80.0) Lymphocytes (%) (Auto) 12.5 % (10.0-50.0) Monocytes (%) (Auto) 7.2 % (0.0-12.0) Eosinophils (%) (Auto) 1.1 % (0.0-7.0) Basophils (%) (Auto) 0.7 % (0.0-2.0) Neutrophils # (Auto) 5.3 10 ^3/uL (1.6-8.6) Lymphocytes # (Auto) 0.8 10 ^3/uL (0.4-5.4) Monocytes # (Auto) 0.5 10 ^3/uL (0-1.3) Eosinophils # (Auto) 0.1 10 ^3/uL (0-0.8) Basophils # (Auto) 0 10 ^3/uL (0-0.2) Nucleated Red Blood Cells 0.1 % Total Bilirubin 0.4 mg/dL (0.2-1.0) Aspartate Amino Transferase (AST) 69 U/L (13-40) Alanine Aminotransferase (ALT) 74 U/L (7-40) Alkaline Phosphatase 89 U/L (46-116) Total Protein 6.4 g/dL (5.7-8.2) Albumin 3.3 g/dL (3.2-4.8) Random Vancomycin Level 6.2 ug/mL (5-10) Urine Color Light-yellow (Yellow) Urine Clarity Clear (Clear) Urine pH 5.0 (5.0-9.0) Urine Specific [place] 1.016 (1.001-1.035) Urine Protein Trace (Negative) Urine Ketones Negative (Negative) Urine Blood Negative /uL (Negative) Urine Nitrite Negative (Negative) Urine Bilirubin Negative (Negative) Urine Urobilinogen Normal mg/dL (Negative) Urine Leukocyte Esterase 2+ /uL (Negative) Urine RBC 6 /hpf (0 - 3) Urine Microscopic WBC 73 /HPF (0-3) Urine Squamous Epithelial Cells None seen /hpf (<5) Urine Bacteria None seen /hpf (None Seen) Urine Glucose Normal mg/dL (Normal) Test 06/28/24 10:26 Erythrocyte Sedimentation Rate 33 mm/hr (0-20) Lactic Acid Level 1.0 mmol/L (0.4-2.0) Troponin I High Sensitivity 10 ng/L (</=54) C-Reactive Protein High Sensitivity 0.18 mg/dL (<1.0) B-Type Natriuretic Peptide 18.47 pg/mL (0-100) Other Laboratory Tests 07/02/24 10:21 07/01/24 05:12 Brief Hx & Hospital Course: History of Present Illness Rajesh To is a 64-year-old male with past medical history of frontal lobe tumor surgery, left ankle surgery, hypertension, and chronic renal disease not on dialysis who presents to the ED with right lower extremity pain. Patient reports that he was at [facility] yesterday and was discharged was supposed to brick picker his clindamycin at the pharmacy but it was closed at the time. Patient states that the wound was not open like that when he was discharged. Upon examination noted to have pus draining foul-smelling odor. Right leg also erythematous. Patient states that he is homeless and he is living on the streets. He reports the right lower extremity pain 10/10 aching and burning constantly. Patient currently denies chest pain, shortness of breath, fever, chills, redness, weakness, dizziness, abdominal pain, nausea, vomiting, and diarrhea. Course of hospitalization: Patient was started on-vancomycin. Culture came back for MRSA of the wound. Patient was treated with Librium, scheduled dosing with the patient now weaned off the medication. Social service consultation was obtained, for which the patient has had authorization for placement at [facility]. Patient was agreeable to be discharged and continue oral antibiotic therapy with clindamycin 300 mg p.o. t.i.d. for additional seven days. Medication was started in the hospital for which he was tolerating. Patient will also refrain from using any illicit drugs or alcohol intake. Patient was agreeable with discharge plan. All questions answered. Physical examination General: Alert and Oriented x3. No acute distress. Well-nourished. Eyes: EOMI. Anicteric. HENT: Moist mucous membranes. Lungs: Clear to auscultation bilaterally. No accessory muscle use. Cardiovascular: Regular rate and rhythm. No murmur. No JVD. Abdomen: Soft, non-tender and non-distended. No palpable masses. Extremities: No edema. Non-tender. Skin: No rashes or lesions. Warm. Cellulitis to right lower extremity Neurologic: No focal neurological deficits. CN II-XII grossly intact, but not individually tested. Psychiatric: Cooperative. Appropriate mood and affect. Total time spent with patient discussing and formulating plan of care: 35 minutes. This medical document was created using an electronic medical record system with [employer] system. Although this document has been carefully reviewed, there may still be some phonetic and typographical errors. These areas are purely typographical due to imperfections of the software programs, and do not reflect any compromise in the patient's medical care. Condition at Discharge: Guarded Final Diagnosis/Problems List Cellulitis with MRSA to lower extremity Secondary diagnosis: -history of polysubstance abuse including heroin, alcohol, tobacco -cachexia -acute kidney injury, vasomotor nephropathy -hyperkalemia -homelessness -failure of oral antibiotic therapy Discharge Disposition: Home Discharge Instruct/Medications Diet: Regular Activity: No Restrictions, As Tolerated Follow Up/Referral: PCP in 1-2 weeks Medications: Clindamycin 300 mg p.o. 3 times a day times seven days Florastor 250 mg p.o. daily 36 Discharge Statement: "Patient was advised to return to the ER or call 911 if any headaches, dizziness, shortness of breath, chest pain, abdominal pain, bleeding, fevers, or worsening of medical condition. Patient was counseled about treatment plan, medications, possible side effects, patientverbalized understanding. All questions were answered to the best of my ability. This discharge took greater then 30 minutes in planning, reviewing documentation, counseling the patient, and discussing with other team members." ASSESSMENT ASSESSMENT Assessment Cellulitis with MRSA to lower extremity Date of Service: Jul 02, 2024 Billing Provider: POORNIMA WOODS NP Common Visit Codes: [id number] DISCH DAY >30min POORNIMA WOODS NP Jul 02, 2024 11:21
[2024-07-02 12:52] VITALS: BP 136/85; PULSE 82; RESP 18; TEMP 97.7; O2SAT 98
[2024-07-02] MEDS: CLINDAMYCIN HCL 150 MG CAP PO SCH (15:01)
[2024-07-02 15:50] VITALS: BP 136/85; PULSE 82; RESP 18; TEMP 97.7
== END 2024-07-02 16:30 | disposition home health service (06) | DRG 383 ==
LOC: EDBD 10:05 → ER 10:05 → OVERFLOW 11:25 → WEST WING 16:58 → TELE-WESTW 20:33 → CENTRAL 07-01 18:25
PROVIDERS: ADMIT Nurse Practitioner Acute Care; ATTEND Nurse Practitioner Acute Care
DX: L03.115 Cellulitis of right lower limb (principal); N17.0 Acute kidney failure with tubular necrosis; R64 Cachexia; E87.5 Hyperkalemia; R74.01 Elevation of levels of liver transaminase levels; F17.210 Nicotine dependence, cigarettes, uncomplicated; I12.9 Hypertensive chronic kidney disease with stage 1 through stage 4 chronic kidney disease, or unspecified chronic kidney disease; F11.10 Opioid abuse, uncomplicated; F10.10 Alcohol abuse, uncomplicated; Y90.9 Presence of alcohol in blood, level not specified; N18.9 Chronic kidney disease, unspecified; Z59.02 Unsheltered homelessness; Z22.322 Carrier or suspected carrier of Methicillin resistant Staphylococcus aureus; Z68.20 Body mass index [BMI] 20.0-20.9, adult
CPT/HCPCS: 36415; 73700; 80048; 80053; 80202; 81001; 82565; 83605; 83880; 84484; 85025; 85652; 86141; 87077; 87081; 87186; 87205; 93005; 96365; 99291; G0378; J3490